=== PATIENT | male | born 1955 | race Caucasian/White ===

== ENCOUNTER 2016-12-24 13:47 | Outpatient (CLI) | payer BC ==
[2016-12-24] MEDS ORDERED: Iopamidol 370 76% 100 ML VIAL ONE (15:55)
--- NOTE | 2016-12-25 10:44 | CT ---
CT PELVIS WITH CONTRAST: Date: 12/24/16 HISTORY: Groin pain x2 months. Double hernia surgery. COMPARISON: None. FINDINGS: Moderate diverticular disease of the sigmoid colon without active inflammation. There is a right ing uinal lymph node, which is mildly inflamed and measures approximately 9 mm in short axis. Abnormal thickening of the urinary bladder wall. Prostate is enlarged. Small bilateral fat-containing indirect inguinal hernias. Enthesopathic changes of the adductor longus muscles bilaterally. There is some posterior superior o sseous fusion of the SI joints. Mild facet arthrosis lower lumbar spine. No acute fracture. There is right-sided os acetabulum indicating degeneration of the labrum. IMPRESSION: 1. Small fat-containing bilateral indirect inguinal hernias. 2. Right-sided inguinal lymph node asymmetric to the left measuring up to 9.0 mm in short axis. 3. Abnormal thickening of urinary bladder suggests cystitis. Follow-up cystoscopy may be beneficial . Recommend correlation with urinalysis. 4. 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 5. Enthesopathic changes of the adductor longus muscles bilaterally suggest chronic repetitive micr otrauma. POS: OFF
== END 2016-12-24 13:48 | disposition home or self-care (01) ==
LOC: CT 13:47
PROVIDERS: ATTEND Surgery
DX: R19.09 Other intra-abdominal and pelvic swelling, mass and lump (principal); K40.20 Bilateral inguinal hernia, without obstruction or gangrene, not specified as recurrent; M53.3 Sacrococcygeal disorders, not elsewhere classified; N32.89 Other specified disorders of bladder; M77.8 Other enthesopathies, not elsewhere classified
CPT/HCPCS: 72193

== ENCOUNTER 2018-09-16 08:54 | Outpatient (CLI) | payer BC ==
--- NOTE | 2018-09-16 12:18 | RAD ---
RIGHT HAND RADIOGRAPHS THREE VIEWS: 09/16/2018 PROVIDED CLINICAL HISTORY: Fifth metacarpal pain, status post injury. FINDINGS: There is no evidence for fracture or other acute osseous abnormality. If there is persistent clinical concern, conservative management and follow-up imaging are advised. IMPRESSION: As above. POS: [facility]
== END 2018-09-16 08:55 | disposition home or self-care (01) ==
LOC: BICRAD 08:54
PROVIDERS: ATTEND Physician Assistant
DX: M79.641 Pain in right hand (principal)

== ENCOUNTER 2019-10-04 09:27 | Emergency (ER) | payer MEDICARE, OTHER ==
[2019-10-05 12:19] LABS: SARS-CoV-2 MS2 Positive; SARS-CoV-2 N Gene Negative; SARS-CoV-2 S Gene Negative; SARS-CoV-2 orf1ab Negative
== END 2019-10-04 09:45 | disposition home or self-care (01) ==
LOC: ERS 09:27
DX: Z20.828 Contact with and (suspected) exposure to other viral communicable diseases (principal); I10 Essential (primary) hypertension; Z87.891 Personal history of nicotine dependence; M10.9 Gout, unspecified; Z79.899 Other long term (current) drug therapy
CPT/HCPCS: 87635; U0003

== ENCOUNTER 2020-02-18 14:30 | Outpatient (CLI) | payer MEDICARE ==
--- NOTE | 2020-02-18 17:11 | CT ---
CT PELVIS WITHOUT CONTRAST: 02/18/20 INDICATION: Right lower quadrant pain. Patient describes lump right groin area. Comparison made to prior pelvic CT 12/24/16. FINDINGS: The visualized bowel loops appear unremarkable. Diverticulosis of the left colon and sigmoid without evidence of diverticulitis. Mild prostatic hypertrophy appears stable. Bladder wall thickening noted on the prior study is not apparent today. Bladder wall appears normal today and a mildly distended b ladder. Visualized aorta is normal caliber. Visualized kidneys unremarkable. Images through the pelvis show slightly prominent inguinal rings which are fat containing and are unc hanged from the prior study. There is a mildly prominent right inguinal lymph node measuring 1.5 cm. There are numerous other smal ler inguinal lymph nodes bilaterally which are subcentimeter. This mildly enlarged right inguinal no de was present on the prior study. The mild degenerative changes at the SI joints appear stable. IMPRESSION: 1. Diverticulosis without evidence of diverticulitis. 2. Mildly prominent internal inguinal rings which are stable. 3. Nonspecific inguinal lymph nodes with enlarged lymph node in the right inguinal region as mathew cribed above. 4. Degenerative changes in the SI joints appear stable. 5. Mild prostatic hypertrophy. No evidence of urinary bladder wall thickening. POS: [facility]
== END 2020-02-18 14:31 | disposition home or self-care (01) ==
LOC: BICCT 14:30
PROVIDERS: ATTEND Specialist
DX: R10.31 Right lower quadrant pain (principal); G58.8 Other specified mononeuropathies; K57.90 Diverticulosis of intestine, part unspecified, without perforation or abscess without bleeding; R59.0 Localized enlarged lymph nodes; M47.818 Spondylosis without myelopathy or radiculopathy, sacral and sacrococcygeal region; N40.0 Benign prostatic hyperplasia without lower urinary tract symptoms
CPT/HCPCS: 72192